=== PATIENT | male | born 1995 | race Caucasian/White ===

== ENCOUNTER 2018-07-17 15:39 | Emergency (ER) | payer OTHER ==
[~2018-07-17] VITALS: Ht 175.3 cm; Wt 70.0 kg
[2018-07-17 15:50] VITALS: Ht 175.3 cm; Wt 70.0 kg
[2018-07-17] MEDS ORDERED: HALOPERIDOL 5 MG INJ IM ONE (16:00)
[2018-07-17] MEDS ORDERED: OXYC30TA PO (16:06)
[2018-07-17] MEDS ORDERED: ALPR2TAB PO (16:07)
[2018-07-17] MEDS ORDERED: PROM5SYR2 PO (16:08)
[2018-07-17] MEDS ORDERED: LORAZEPAM 2 MG INJ ONE (16:33)
[2018-07-17] MEDS ORDERED: DIPHENHYDRAMINE 50 MG INJ ONE (16:33)
--- NOTE | 2018-07-17 16:45 | ERD ---
ER Documentation Chief Complaint Chief Complaint BIB POLICE/EMS D/T REPORTED WALKING INTO TRAFFIC NERY BLD HPI 23-year-old male who presents to the emergency room with police escort after being found walking in public and walking in front of traffic. The patient is not cooperative with examination and history. He states "my name is Bane". Remainder of HPI is extremely limited. Shortly after initial evaluation the patient becomes extremely agitated aggressive threatening to staff and himself. He requires restraints. Police officers report known history of underlying psychiatric illness as well as substance abuse including methamphetamine. ROS Limited as described above Medications Home Meds Reported Medications Promethazine HCl/Codeine (Prometh-Codein 6.25-10 mg/5 ml) 5 Ml Syrup, 10 ML PO NEEDED 07/17/18 Alprazolam* (Xanax*) 2 Mg Tablet, 2 MG PO Q8H PRN for ANXIETY, TAB 07/17/18 Oxycodone Hcl* (IR) (Oxycodone Hcl*) 30 Mg Tablet, 30 MG PO Q4H PRN for PAIN, TAB 07/17/18 Allergies Allergies: Coded Allergies: No Known Allergy (Unverified , 07/17/18) PMhx/Soc History of Surgery: No Anesthesia Reaction: No Hx Neurological Disorder: No Hx Respiratory Disorders: No Hx Cardiac Disorders: No Hx Psychiatric Problems: Yes (SCHZOPHRENIA) Hx Miscellaneous Medical Probl: Yes (DRUG USE) Hx Alcohol Use: Yes Hx Substance Use: Yes Hx Tobacco Use: No Smoking Status: Never smoker FmHx Family History: No diabetes Physical Exam Vitals Vital Signs Date Temp Pulse Resp B/P (MAP) Pulse Ox O2 O2 Flow FiO2 Time Delivery Rate 07/17/18 99.7 106 22 135/89 98 16:40 (104) 07/17/18 99.0 104 18 133/91 99 15:50 (105) Physical Exam General: Agitated Head: Normocephalic, atraumatic. Eyes: Pupils equally reactive, EOM intact ENT: Moist mucous membranes Neck: Supple, no lymphadenopathy Respiratory: Lungs clear bilaterally, no distress Cardiovascular: RRR, no murmurs, rubs, or gallops Abdominal: Soft, non-tender, non-distended, no peritoneal signs : Deferred MSK: No edema, no unilateral swelling, 5/5 strength Neurologic: Poorly cooperative but moving all extremities Skin: No rash Psych: Agitated, reported suicidal Result Diagram: 07/17/18 1614 07/17/18 1614 Results 24 hrs Laboratory Tests Test 07/17/18 16:14 White Blood Count 7.7 10^3/ul Red Blood Count 4.92 10^6/ul Hemoglobin 14.9 g/dl Hematocrit 43.6 % Mean Corpuscular Volume 88.6 fl Mean Corpuscular Hemoglobin 30.3 pg Mean Corpuscular Hemoglobin Concent 34.2 g/dl Red Cell Distribution Width 11.9 % Platelet Count 250 10^3/UL Mean Platelet Volume 9.0 fl Immature Granulocytes % 0.400 % Neutrophils % 58.2 % Lymphocytes % 29.9 % Monocytes % 8.4 % Eosinophils % 2.2 % Basophils % 0.9 % Nucleated Red Blood Cells % 0.0 /100WBC Immature Granulocytes # 0.030 10^3/ul Neutrophils # 4.5 10^3/ul Lymphocytes # 2.3 10^3/ul Monocytes # 0.7 10^3/ul Eosinophils # 0.2 10^3/ul Basophils # 0.1 10^3/ul Nucleated Red Blood Cells # 0.0 10^3/ul Sodium Level 139 mmol/L Potassium Level 3.6 mmol/L Chloride Level 106 mmol/L Carbon Dioxide Level 21 mmol/L Anion Gap 12 Blood Urea Nitrogen 16 mg/dl Creatinine 0.80 mg/dl Est Glomerular Filtrat Rate mL/min > 60 mL/min Glucose Level 91 mg/dl Calcium Level 8.9 mg/dl Salicylates Level < 1.0 mg/dl Ethyl Alcohol Level < 10.0 mg/dl Current Medications Medications Dose Sig/Odilon Start Time Status Last (Trade) Ordered Route PRN Stop Time Admin Dose Reason Admin Haloperidol 5 mg ONCE ONCE 07/17/18 DC 07/17/18 (Haldol) IM 16:00 16:00 07/17/18 16:01 50 mg STK-MED 07/17/18 DC Diphenhydrami ONCE .ROUTE 16:33 ne HCl 07/17/18 16:34 (Benadryl) Lorazepam 2 mg ONCE ONCE 07/17/18 DC 07/17/18 (Ativan) IM 17:00 16:37 07/17/18 17:01 50 mg ONCE ONCE 07/17/18 DC 07/17/18 Diphenhydrami IM 17:00 16:37 ne HCl 07/17/18 17:01 (Benadryl) Lorazepam 2 mg STK-MED 07/17/18 DC (Ativan) ONCE .ROUTE 16:33 07/17/18 16:34 Procedures/MDM EKG/DIAGNOSTIC IMAGING: None Required LAB INTERPRETATION: No acute process Restrains: Indication: Aggressive behavior danger to self and medical staff Location: 4 point restraints to bilateral upper and lower extremities The patient was given verbal warnings that if the behavior continued the patient would require physical and/or chemical restraints. Despite verbal warnings the behavior continued and restraints were applied. The patient had a bedside reevaluation within 50 minutes of placement of restraints. Patient remained stable. MEDICAL DECISION MAKING: The patient's presentation is consistent with underlying psychiatric illness and likely exacerbation of this illness and/or psychosis. Consider possible concomitant polysubstance abuse I have a much lower clinical concern for delirium or acute organic pathology such as toxicologic, metabolic, ischemic, intracranial hemorrhage, infectious process. However, we must rule this out prior to relying a diagnosis of underlying psychiatric illness. The patient's workup will include medical screening examination and appropriate laboratory testing. If the patient's medical examination does not reveal acute organic pathology the patient will be medically cleared for psychiatric evaluation. ER COURSE: * Shortly after initial evaluation the patient was aggressive, slamming doors and threatening. Patient was given Haldol just prior to this. Ativan and Benadryl provided. Restraints applied. * Patient will require observation and once more alert can be evaluated by psych iatrist. * The patient's evaluation does not suggest an acute organic pathology. At this time I believe the patient's presentation is very consistent with underlying psychiatric illness. The patient is medically cleared for psychiatric evaluation. CONSULTATION: Psychiatric consultation: Telemetry medicine psychiatry has been consulted on this case to evaluate the patient for possible acute psychiatric illness that would require inpatient hospitalization. DISPOSITION PLAN: Pending psych eval Departure Diagnosis: Primary Impression: Suicidal ideation Additional Impression: Polysubstance abuse Condition: Stable NAYLA GALLARDO MD July 17, 2018 16:45
[2018-07-17] MEDS ORDERED: LORAZEPAM 2 MG INJ IM ONE (17:00)
[2018-07-17] MEDS ORDERED: DIPHENHYDRAMINE 50 MG INJ IM ONE (17:00)
[2018-07-18 08:18] VITALS: BP 126/62; PULSE 102; RESP 16
== END 2018-07-18 08:35 ==
LOC: E/R 15:39
DX: F19.10 Other psychoactive substance abuse, uncomplicated (principal)
CPT/HCPCS: 80048; 80307; 85025; 96372; 99285; J1200; J1630; J2060